=== PATIENT | male | born 1965 | race Caucasian/White ===

== ENCOUNTER → 2017-05-20 | Outpatient (CLI) | payer BC, OTHER ==
[~2017-05-20] MED LIST: ASPIRIN81 M2 PO; COUMADIN2.5 MG PO; COUMADIN5 MG PO; ENDOCET 5-3251 EACH PO; MIRTAZAPINE15 MG PO; OMEPRAZOLE10 M1 PO; ONDANSETRON HCL4 M1; PANTOPRAZOLE SO40 MG PO; VENLAFAXINE HC150 M1 PO
== END | disposition home or self-care (01) ==
LOC: PICC 07:23
DX: M00.9 Pyogenic arthritis, unspecified (principal)
CPT/HCPCS: 76937; C1769